=== PATIENT | male | born 1990 | race Caucasian/White ===

== ENCOUNTER → 2022-01-02 | Outpatient (CLI) | payer BC, OTHER ==
--- NOTE | 2022-01-02 09:42 | Diagnostic Imaging Report ---
PROCEDURE: US Gallbladder. TECHNIQUE: Multiple real-time grayscale images were obtained over the right upper quadrant in various projections. INDICATION: Left upper quadrant pain. Elevated liver enzymes. COMPARISON: None FINDINGS: Examination is suboptimal due to bowel gas and body habitus. The pancreas is not seen due to bowel gas. The aorta, IVC, and common bile duct are also not seen due to bowel gas. The liver is normal in size. The portal vein is hepatopetal. The liver appears to be echogenic. The gallbladder wall does not appear thickened. No shadowing stones are seen. Sonographic Correa sign is negative. The right kidney measures 11.2 cm in length. There is no hydronephrosis and no free fluid is seen. IMPRESSION: 1. Suboptimal examination due to bowel gas and body habitus. Fatty infiltration of the liver with no focal lesions or intrahepatic biliary dilatation seen. 2. No gallbladder abnormality seen. Dictated by: Dictated on workstation # [id number]
== END ==
LOC: RAD 09:00
PROVIDERS: ATTEND Family Medicine
DX: K76.0 Fatty (change of) liver, not elsewhere classified (principal)
CPT/HCPCS: 76705

== ENCOUNTER 2022-05-19 14:28 | Emergency (ER) | payer OTHER ==
[~2022-05-19] VITALS: Ht 190.5 cm; Wt 134.0 kg
--- NOTE | 2022-05-19 14:48 | ED Abdominal Pain ---
General Stated Complaint: PELVIC PAIN/FEVER Source of Information: Patient Exam Limitations: No Limitations History of Present Illness Date Seen by Provider: May 19, 2022 Time Seen by Provider: 14:46 Initial Comments To ER accompanied by his with reports of ongoing periumbilical abdominal pain. He states that this began about 8 to 10 days ago. He saw Dr. SPRAGUE, his primary care provider, on 05/14/2022 and was given medication for constipation and irritable bowel syndrome. His pain is better but today he developed a fever up to nine 9.4 which alarmed him. He has ongoing pain intermittently but none currently. No nausea no vomiting. He was also told that he had elevated liver enzymes a couple of months ago that was attributed to fatty liver disease. He begins crying and tells me that he's got 2 kids and does not want to . Timing/Duration: Intermittent Severity/Quality: Cramping Location: Generalized Abdomen Radiation: No Radiation Activities at Onset: None Associated Symptoms: Denies Symptoms Allergies and Home Medications Allergies Coded Allergies: No Known Drug Allergies (Unverified , 05/19/22) Patient Home Medication List Home Medication List Reviewed: Yes Ciprofloxacin HCl (Ciprofloxacin HCl) 500 Mg Tablet, 500 MG PO BID Prescribed by: MARLY WALLACE on 05/19/22 1520 Lorazepam (Ativan) 0.5 Mg Tablet, 0.5 MG PO BID PRN for ANXIETY Prescribed by: MARLY WALLACE on 05/19/22 1520 Metronidazole (Metronidazole) 500 Mg Tablet, 500 MG PO TID Prescribed by: MARLY WALLACE on 05/19/22 1520 Review of Systems Review of Systems Constitutional: see HPI EENTM: No Symptoms Reported Respiratory: No Symptoms Reported Cardiovascular: No Symptoms Reported Gastrointestinal: See HPI, Abdominal Pain; Denies Constipated, Denies Diarrhea, Denies Nausea Genitourinary: No Symptoms Reported Musculoskeletal: no symptoms reported Skin: no symptoms reported Psychiatric/Neurological: No Symptoms Reported Endocrine: No Symptoms Reported Hematologic/Lymphatic: No Symptoms Reported Physical Exam Vital Signs Vital Signs - First Documented 05/19/22 14:45 Temp 36.6 Pulse 109 Resp 18 B/P (MAP) 149/98 (115) Pulse Ox 97 O2 Delivery Room Air Capillary Refill : Height/Weight/BMI Height: '" Weight: lbs. oz. kg; BMI Method: General Appearance: WD/WN, no apparent distress HEENT: PERRL/EOMI, normal ENT inspection Respiratory: no respiratory distress, no accessory muscle use Cardiovascular: no murmur, other (Slight tachycardia rate of 110, tearful and anxious) Gastrointestinal: normal bowel sounds, soft, tenderness (Right periumbilical tenderness) Extremities: normal range of motion, non-tender Neurologic/Psychiatric: alert, normal mood/affect, oriented x 3 Skin: normal color, warm/dry Progress/Results/Core Measures Results/Orders Lab Results Laboratory Tests Test 05/19/22 14:40 Range/Units White Blood Count 6.0 4.3-11.0 10^3/uL Red Blood Count 5.89 H 4.30-5.52 10^6/uL Hemoglobin 17.8 H 13.3-17.7 g/dL Hematocrit 50 40-54 % Mean Corpuscular Volume 85 80-99 fL Mean Corpuscular Hemoglobin 30 25-34 pg Mean Corpuscular Hemoglobin Concent 35 32-36 g/dL Red Cell Distribution Width 11.9 10.0-14.5 % Platelet Count 228 130-400 10^3/uL Mean Platelet Volume 9.7 9.0-12.2 fL Immature Granulocyte % (Auto) 0 % Neutrophils (%) (Auto) 68 42-75 % Lymphocytes (%) (Auto) 23 12-44 % Monocytes (%) (Auto) 8 0-12 % Eosinophils (%) (Auto) 1 0-10 % Basophils (%) (Auto) 1 0-10 % Neutrophils # (Auto) 4.1 1.8-7.8 10^3/uL Lymphocytes # (Auto) 1.4 1.0-4.0 10^3/uL Monocytes # (Auto) 0.5 0.0-1.0 10^3/uL Eosinophils # (Auto) 0.1 0.0-0.3 10^3/uL Basophils # (Auto) 0.0 0.0-0.1 10^3/uL Immature Granulocyte # (Auto) 0.0 0.0-0.1 10^3/uL Urine Color YELLOW Urine Clarity CLEAR Urine pH 6.0 5-9 Urine Specific [place] <=1.005 1.016-1.022 Urine Protein NEGATIVE NEGATIVE Urine Glucose (UA) NEGATIVE NEGATIVE Urine Ketones NEGATIVE NEGATIVE Urine Nitrite NEGATIVE NEGATIVE Urine Bilirubin NEGATIVE NEGATIVE Urine Urobilinogen 0.2 < = 1.0 MG/DL Urine Leukocyte Esterase NEGATIVE NEGATIVE Urine RBC (Auto) TRACE-I H NEGATIVE Urine RBC NONE /HPF Urine WBC NONE /HPF Urine Squamous Epithelial Cells NONE /HPF Urine Crystals NONE /LPF Urine Bacteria NEGATIVE /HPF Urine Casts NONE /LPF Urine Mucus NEGATIVE /LPF Urine Culture Indicated NO Sodium Level 139 135-145 MMOL/L Potassium Level 3.6 3.6-5.0 MMOL/L Chloride Level 102 98-107 MMOL/L Carbon Dioxide Level 25 21-32 MMOL/L Anion Gap 12 5-14 MMOL/L Blood Urea Nitrogen 12 7-18 MG/DL Creatinine 1.16 0.60-1.30 MG/DL Estimat Glomerular Filtration Rate 87 BUN/Creatinine Ratio 10 Glucose Level 98 70-105 MG/DL Calcium Level 9.8 8.5-10.1 MG/DL Corrected Calcium 8.5-10.1 MG/DL Total Bilirubin 1.7 H 0.1-1.0 MG/DL Aspartate Amino Transf (AST/SGOT) 36 H 5-34 U/L Alanine Aminotransferase (ALT/SGPT) 58 H 0-55 U/L Alkaline Phosphatase 50 40-136 U/L C-Reactive Protein High Sensitivity 0.05 0.00-0.50 MG/DL Total Protein 7.8 6.4-8.2 GM/DL Albumin 5.0 H 3.2-4.5 GM/DL Lipase 34 8-78 U/L My Orders Orders - MARLY WALLACE OR MANAGER Cbc With Automated Diff (05/19/22 14:45) Comprehensive Metabolic Panel (05/19/22 14:45) Lipase (05/19/22 14:45) Ua Culture If Indicated (05/19/22 14:45) Ed Iv/Invasive Line Start (05/19/22 14:45) Ct Abdomen/Pelvis Wo (05/19/22 14:45) Lactated Ringers (Lr 1000 Ml Iv Solution (05/19/22 15:00) Hs C Reactive Protein (05/19/22 15:00) Vital Signs/I&O 05/19/22 14:45 Temp 36.6 Pulse 109 Resp 18 B/P (MAP) 149/98 (115) Pulse Ox 97 O2 Delivery Room Air Departure Communication (Admissions) 5114-Discussed the CT findings of an enlarged appendix with Dr. Allen though there are no inflammatory changes around the appendix. His pain is minimal at best. His inflammatory markers are unremarkable, he has no white count and his symptoms are not typical of an appendicitis. We will treat him with some oral antibiotics and have him follow-up with surgery. Impression Primary Impression: Abdominal pain Disposition: HOME, SELF-CARE Condition: Stable Departure-Patient Inst. Decision time for Depature: 15:18 Referrals: CHAD ALLEN JACQUELINE S DO (PCP/Family) Primary Care Physician Patient Instructions: IRRITABLE BOWEL SYNDROME Add. Discharge Instructions: . Diet as tolerated. Antibiotics as directed. Return to ER for any worsening. Follow-up with Dr Allen from surgery to ensure that youre improving. Scripts Lorazepam (Ativan) 0.5 Mg Tablet 0.5 MG PO BID PRN for ANXIETY for 7 Days, #10 TAB Prov: MARLY WALLACE APRN 05/19/22 Metronidazole (Metronidazole) 500 Mg Tablet 500 MG PO TID, #15 TAB 0 Refills Prov: MARLY WALLACE APRN 05/19/22 Ciprofloxacin HCl (Ciprofloxacin HCl) 500 Mg Tablet 500 MG PO BID, #10 TAB Prov: MARLY WALLACE APRN 05/19/22 MARLY WALLACE APRN May 19, 2022 14:48
[2022-05-19 14:49] LABS: BASOPHILS % (AUTO) 1 % (0-10); EOSINOPHILS # (AUTO) 0.1 10^3/uL (0.0-0.3); EOSINOPHILS % (AUTO) 1 % (0-10); HEMATOCRIT 50 % (40-54); HEMOGLOBIN 17.8 g/dL (13.3-17.7); LYMPHOCYTES # (AUTO) 1.4 10^3/uL (1.0-4.0); LYMPHOCYTES % (AUTO) 23 % (12-44); MEAN CORPUSCULAR HEMOGLOBIN 30 pg (25-34); MEAN CORPUSCULAR HGB CONC 35 g/dL (32-36); MEAN CORPUSCULAR VOLUME 85 fL (80-99); MEAN PLATELET VOLUME 9.7 fL (9.0-12.2); MONOCYTES # (AUTO) 0.5 10^3/uL (0.0-1.0); MONOCYTES % (AUTO) 8 % (0-12); NEUTROPHILS # (AUTO) 4.1 10^3/uL (1.8-7.8); NEUTROPHILS % (AUTO) 68 % (42-75); PLATELET COUNT 228 10^3/uL (130-400)
[2022-05-19 14:50] LABS: BILIRUBIN,URINE NEGATIVE (NEGATIVE); CLARITY,URINE CLEAR; COLOR,URINE YELLOW; GLUCOSE, URINE (UA) NEGATIVE (NEGATIVE); KETONES,URINE NEGATIVE (NEGATIVE); LEUKOCYTE ESTERASE ,URINE NEGATIVE (NEGATIVE); NITRITE,URINE NEGATIVE (NEGATIVE); PROTEIN,URINE NEGATIVE (NEGATIVE)
[2022-05-19 14:58] LABS: CHLORIDE 102 MMOL/L (98-107); POTASSIUM 3.6 MMOL/L (3.6-5.0); SODIUM 139 MMOL/L (135-145)
[2022-05-19 15:00] LABS: BACTERIA,URINE NEGATIVE /HPF; CALCIUM 9.8 MG/DL (8.5-10.1)
[2022-05-19] MEDS ORDERED: LACTATED RINGERS 1,000 ML IV SCH (15:00)
[2022-05-19 15:01] LABS: GLUCOSE 98 MG/DL (70-105); TOTAL PROTEIN 7.8 GM/DL (6.4-8.2)
[2022-05-19 15:02] LABS: CARBON DIOXIDE 25 MMOL/L (21-32)
[2022-05-19 15:03] LABS: BILIRUBIN,TOTAL 1.7 MG/DL (0.1-1.0)
[2022-05-19 15:04] LABS: ALKALINE PHOSPHATASE 50 U/L (40-136); CREATININE SERUM 1.16 MG/DL (0.60-1.30); GFR ESTIMATED 87
[2022-05-19 15:05] LABS: BUN/CREATININE RATIO 10
[2022-05-19 15:07] LABS: ALANINE AMINOTRANSFERASE 58 U/L (0-55)
[2022-05-19 15:08] LABS: LIPASE 34 U/L (8-78)
--- NOTE | 2022-05-19 15:17 | Diagnostic Imaging Report ---
PROCEDURE: CT abdomen and pelvis without contrast. TECHNIQUE: Multiple contiguous axial images were obtained through the abdomen and pelvis without the use of intravenous contrast. Auto Exposure Controls were utilized during the CT exam to meet ALARA standards for radiation dose reduction. INDICATION: Right lower quadrant pain. COMPARISON: None available. FINDINGS: The visualized lung bases are clear. No significant hiatal hernia. The gallbladder is grossly unremarkable. The unenhanced liver and spleen are unremarkable. The adrenal glands are unremarkable. The pancreas is unremarkable. The kidneys and bilateral ureters are unremarkable. No aneurysmal dilatation of the abdominal aorta. The appendix is mildly enlarged measuring up to 9 mm. No significant periappendiceal inflammatory stranding is identified, however. No bowel obstruction or pneumatosis. No significant adenopathy, free air or free fluid within the abdomen or pelvis. No acute osseous abnormality. IMPRESSION: 1. The appendix is borderline dilated without significant adjacent inflammatory stranding. This is nonspecific though acute appendicitis cannot be completely excluded. Recommend clinical correlation. 2. Otherwise, essentially unremarkable examination without evidence of renal or ureteral calculi. Dictated by: Dictated on workstation # [id number]
[2022-05-19] MEDS ORDERED: CIPR500T5 PO (15:20)
[2022-05-19] MEDS ORDERED: LORA-404 PO (15:20)
[2022-05-19] MEDS ORDERED: METR-145 PO (15:20)
[2022-05-19 15:41] VITALS: BP 144/91
== END 2022-05-19 15:41 | disposition home or self-care (01) ==
LOC: EDUNIT# 14:28 → ER 14:30
DX: R10.33 Periumbilical pain (principal); Z28.310 Unvaccinated for COVID-19
CPT/HCPCS: 36415; 74176; 80053; 81000; 83690; 85025; 86141

== ENCOUNTER 2022-05-21 11:52 | Outpatient (CLI) | payer OTHER ==
[~2022-05-21] VITALS: Ht 190.5 cm; Wt 134.4 kg
[~2022-05-21 11:52] MED LIST: CIPR500T5 PO; LORA-404 PO; METR-145 PO
[2022-05-21] MEDS ORDERED: DICY10CA12 PO (13:08)
[2022-05-21] MEDS ORDERED: CALC500T7 PO (13:23)
[2022-05-22] MEDS ORDERED: ACHYD1T PO (14:29)
== END 2022-05-21 13:28 ==
LOC: PREOP 11:52
PROVIDERS: ATTEND Surgery
DX: Z01.818 Encounter for other preprocedural examination (principal); K36 Other appendicitis

== ENCOUNTER 2022-05-22 10:46 | Day surgery (SDC) | payer OTHER ==
[2022-05-22] VITALS (12 sets, daily range): BP systolic 124–146; BP diastolic 67–93
[~2022-05-22] VITALS: Ht 190.5 cm; Wt 134.4 kg
[~2022-05-22 10:46] MED LIST changes: +CALC500T7 PO; +DICY10CA12 PO
[2022-05-22] MEDS ORDERED: ceFAZolin 2 GM IV Premixed 50 ML IV ONE (11:00)
--- NOTE | 2022-05-22 11:29 | Progress Note-Pre Operative ---
Pre-Operative Progress Note H&P Reviewed The H&P was reviewed, patient examined and no changes noted. Time Seen by Provider: 11:23 Date H&P Reviewed: May 22, 2022 Time H&P Reviewed: 11:23 Pre-Operative Diagnosis: Chronic Appendicitis CHAD PEREZ DO May 22, 2022 11:29
[2022-05-22] MEDS ORDERED: LIDOCAINE PF 2% 5 ML (XYLOCAINE) VIAL ONE (11:56)
[2022-05-22] MEDS ORDERED: ONDANSETRON 4 MG/2 ML (SDV) Z0FRAN ONE (11:56)
[2022-05-22] MEDS ORDERED: proPOfol 200 MG/20 ML (DIPRIVAN) VIAL IV ONE (11:56)
[2022-05-22] MEDS ORDERED: SEVOFLURANE (ULTANE) 15 ML INHAL SOLN ONE (11:56)
[2022-05-22] MEDS ORDERED: fentaNYL INJ 100 MCG/2 ML AMP ONE (11:57)
[2022-05-22] MEDS ORDERED: MIDAZOLAM 2 MG/2 ML (VERSED) VIAL ONE (11:57)
[2022-05-22] MEDS ORDERED: LIDOCAINE/EPI 2% 1:200,00 (XYLOCAINE) 20 ML VIAL ONE (13:01)
[2022-05-22] MEDS ORDERED: HYDROmorphone 2 MG/ML VIAL (DILAUDID) ONE ×2 (13:54→14:49)
[2022-05-22] MEDS ORDERED: GLYCOPYRROLATE 0.2 MG/ML (ROBINUL) 2 ML VIAL ONE (14:22)
[2022-05-22] MEDS ORDERED: NEOSTIGMINE (BLOXIVERZ ) 1 MG/1ML 10 ML VIAL ONE (14:22)
[2022-05-22] MEDS ORDERED: KETOROLAC 30 MG/ML VIAL ONE (14:24)
--- NOTE | 2022-05-22 14:28 | Progress Note-Post Operative ---
Post-Operative Progess Note Surgeon (s)/Graphic Coordinator (s) Surgeon CHAD PEREZ DO Graphic Coordinator: PARAM Mancuso Pre-Operative Diagnosis Chronic Appendicitis Post-Operative Diagnosis same pending path Procedure & Operative Findings Date of Procedure 05/22/22 Procedure Performed/Findings PROCEDURE: Laparoscopic appendectomy. COMPLICATIONS: None. INDICATIONS: The patient is a 31 year old male who has been having right lower quadrant abdominal pain. Patient's exam and CT suggestive of chronic appendicitis. I discussed risk and benefits of laparoscopic appendectomy and all indicated procedures with the possibility being a normal appendix. The patient understands the risks and benefits and wishes to proceed. Consent was signed on the chart. DESCRIPTION OF PROCEDURE: The patient was taken to the operating suite, prepped and draped in a sterile fashion. Timeout was performed. Local anesthetic was infiltrated just above the umbilicus and 11-blade scalpel was used to make a skin incision. Cautery was used to dissect down to the fascia and scored. Kochers were used to grasp and elevate it and the abdomen was then entered. An 0 Vicryl was placed in a [id number] fashion for closure at the end of the case. The balloon trocar was inserted into the abdomen and pneumoperitoneum was achieved. Under direct visualization of the laparoscope, a 5 mm trocar was placed in the suprapubic region and a 5 mm trocar was placed in the left lower quadrant. Appendix was located in the retrocecal area, very high up into RUQ may have been mildly dilated didn't really look inflamed. The base of the appendix was dissected around. Once at the base an Endo-MUSA 2.5 stapler was then fired across the base of the appendix. The meso- fappendix was then divided. It was then placed in an Endobag and removed through the 12 mm trocar site. The abdomen was then irrigated and suctioned. No other pathology noted. The abdomen was then desufflated and the trocars were removed. The 0 Vicryl placed at the beginning of the case was then tied closing the 12 mm fascial defect. The skin was then closed using 4-0 Monocryl in a subcuticular fashion. The abdomen was then washed and dried and Skin Affix was placed over the incisions. The patient tolerated the procedure well without any complications and was taken to the recovery room in stable condition. Anesthesia Type GET Estimated Blood Loss Estimated blood loss (mL): scant Specimens/Packing Specimens Removed appendix CHAD PEREZ DO May 22, 2022 14:28
[2022-05-22] MEDS ORDERED: ACHYD1T PO (14:29)
--- NOTE | 2022-05-22 14:30 | Discharge Inst-Surgical ---
Discharge Inst-Surgical Depart Medication/Instructions New, Converted or Re-Newed RX: Transmitted to Pharmacy Patient Instructions Follow up Appt: Make appointment for 1 week. [phone] Instructions: No lifting greater than 20 pounds. No strenuous activity. May shower in 24 hours, no tub bath or soaking. Use incentive spirometer at home as directed. No Smoking Skin/Wound Care: May remove bandages in am. You need to leave the Dermabond on incision it will fall off on it's own. Symptoms to Report: Appetite Changes, Extremity Discoloration, Numbness/Tingling, Swelling Increased, Bleeding Excessive, Eyesight Changes, Pain Increased, Urine Color Change, Constipation(Persistent), Fever over 101 degree F, Pain/Pressure in chest, Urinating Difficulty, Cough Up/Vomit Blood, Heart Beat Irreg/Pounding, Pain/Pressure in jaw, Cramps in feet or legs, Lightheadedness, Pain/Pressure in shoulder, Diarrhea(Persistent), Memory Changes Suddenly, Questions/Concerns, Weight gain consecutive days, Dizziness/Fainting, Nausea/Vomiting, Shortness of Breath, Weight gain over 2 pounds If questions or concerns contact your physician Or seek help at emergency department. Activity Activity as Tolerated: Yes Activity Instructions: Avoid Stress to Incision Driving Instructions: No Driving/Refer to Dr. Martinez Discharge Diet: No Restrictions Diet After 24 Hours: Clear Liquid if Nauseous If Any Problems/Questions/Issu: Contact Your Physician, Go to Emergency Room Skin/Wound Care Infection Signs and Symptoms: Increased Redness, Foul Odor of Wound, Increased Drainage, Skin Itchy or Has a Rash, Increased Swelling, Temperature Above 101 F Wound Care Comment: Heating pad to shoulder or neck tonight for pain Bathing Instructions: Shower Stitches/[place]/Dermabond Dis: Dermabond Ice Pack: Ice On and Off Site CHAD PEREZ DO May 22, 2022 14:30
[2022-05-22] MEDS ORDERED: ONDANSETRON 4 MG/2 ML (SDV) Z0FRAN IVP PRN (14:45)
[2022-05-22] MEDS ORDERED: HYDROmorphone 2 MG/ML VIAL (DILAUDID) IV ONE (14:45)
--- NOTE | 2022-05-22 16:04 | Anesthesia-General Post-Op ---
General Patient Condition Mental Status/LOC: Same as Preop Cardiovascular: Satisfactory Nausea/Vomiting: Absent Respiratory: Satisfactory Pain: Controlled Complications: Absent Post Op Complications Complications None Follow Up Care/Instructions Patient Instructions None needed. Anesthesia/Patient Condition Patient Condition Patient is doing well, no complaints, stable vital signs, no apparent adverse anesthesia problems. No complications reported per nursing. D/C home per [facility] [place] Criteria: Yes TIMUR IRWIN CRNA May 22, 2022 16:04
== END 2022-05-22 16:45 | disposition home or self-care (01) ==
LOC: SDC 10:46
PROVIDERS: ATTEND Surgery
DX: K36 Other appendicitis (principal); K38.0 Hyperplasia of appendix; E66.9 Obesity, unspecified; Z68.37 Body mass index [BMI] 37.0-37.9, adult
CPT/HCPCS: 87081; 88304